=== PATIENT | male | born 1945 ===

== ENCOUNTER 2017-07-03 09:55 | Day surgery (SDC) | payer MEDICARE ==
[~2017-07-03 09:55] MED LIST: Buffered Lidocaine 0.9% SYRIN* 5 ML/SYR SYRINGE INTRADERM ONE; Famotidine IV* 10 MG/ML 2 ML (20 mg) IV ONE
[2017-07-03] MEDS ORDERED: Famotidine TAB* 20 MG ONE (10:01)
[2017-07-03] MEDS ORDERED: Buffered Lidocaine 0.9% SYRIN* 5 ML/SYR SYRINGE ONE (10:01)
[2017-07-03] MEDS ORDERED: Dexamethasone IV* 4 MG/ML 1 ML (4 MG) ONE (10:01)
[2017-07-03] MEDS: Dexamethasone IV* 4 MG/ML 1 ML (4 MG) IV SLOW PU ONE ×2 (10:25→10:29)
[2017-07-03] MEDS ORDERED: fentaNYL* 50 MCG/ML 2 ML VIAL (100 MCG VIAL) ONE ×2 (12:22→14:27)
[2017-07-03] MEDS ORDERED: Midazolam* 1 MG/ML 2 ML VIAL (2 MG) ONE (12:22)
[2017-07-03] MEDS ORDERED: EPINEPHRINE 1 MG/ML 1 ML VIAL ONE (12:26)
[2017-07-03] MEDS ORDERED: Lidocaine 4% TOPICAL* 50 ML TOP.SOLN ONE (12:27)
[2017-07-03] MEDS ORDERED: Oxymetazoline 0.05% NASAL SPR* 15 ML BTL ONE (12:27)
[2017-07-03] MEDS ORDERED: Propofol* 10 MG/ML 20 ML BTL IV PUSH ONE (13:04)
[2017-07-03] MEDS ORDERED: Succinylcholine* 20 MG/ML 10 ML VIAL ONE (13:04)
[2017-07-03] MEDS ORDERED: Naloxone* 0.4 MG/ML 1 ML VIAL IV PRN (14:12)
[2017-07-03] MEDS ORDERED: Ondansetron INJ* 2 MG/ML VIAL IV PRN (14:12)
[2017-07-03] MEDS: fentaNYL* 50 MCG/ML 2 ML VIAL (100 MCG VIAL) IV PRN ×2 (14:29→14:34)
[2017-07-03] MEDS ORDERED: Ibuprofen PED LIQ 100 MG/5 ML UDC ONE (15:24)
[2017-07-03 15:32] VITALS: BP 160/82
--- NOTE | 2017-07-04 04:41 | OP ---
DATE OF OPERATION: 07/03/17 - [facility] DATE OF : 45 SURGEON: Dilan Mckoy MD PRE-OP DIAGNOSIS: Right base of tongue mass. POST-OP DIAGNOSIS: Right base of tongue mass. OPERATIVE PROCEDURE: Microlaryngoscopy with biopsy of a right base of tongue mass under general endotracheal anesthesia. I did do multiple frozen sections and some fine needle aspiration and it is all looking like an inflammatory process and there is Giovanna that was seen on the fine needle aspiration biopsy. SPECIMENS: Right base of tongue biopsies with an FNA of the mass as well. These were sent for frozen section and some were sent permanent in formalin and then on the slides and satellite. COMPLICATIONS: None. DESCRIPTION OF PROCEDURE: The patient was taken to the operating room and placed in the supine position on the operating table. General anesthesia was induced and he was orotracheally intubated, turned and draped for the surgery. Initially, the laryngoscope was inserted to do a panendoscopy of this region and no mucosal abnormalities were found in the base of tongue, vallecula, pyriform sinus or hypopharynx. Using my finger, there was a firm mass palpated in the right base of tongue. When looking at this area with direct visualization, however, there was not any mucosal abnormality found. I used a big cup biopsy forceps to take multiple biopsies in the middle of this. I initially kept them fresh for frozen section and then I put a needle in to do an FNA in the middle of the firm area and put these on slides and for satellite. I looked at these with Dr. Vines and it is looking like an inflammatory process and on the alcohol thick slides there were fungal elements. I took some more biopsies and put them in formalin. The patient tolerated this procedure well. No complications. Transferred to the recovery room in stable condition. [id number]/[facility] #: [id number] MTDD
== END 2017-07-03 15:55 | disposition home or self-care (01) ==
LOC: OR 09:55
PROVIDERS: ATTEND Otolaryngology
DX: D10.1 Benign neoplasm of tongue (principal)
CPT/HCPCS: 88173; 88305; 88321; 88331; 88332; 88341; 88342; 88344; A9270-GY; J0330; J1100; J2250; J2704; J3010